=== PATIENT | male | born 1970 | race Asian ===

== ENCOUNTER 2021-10-25 08:43 | Day surgery (SDC) | payer BC, SELFPAY ==
[~2021-10-25] VITALS: Ht 170.2 cm; Wt 64.9 kg
[~2021-10-25 08:43] MED LIST: ACETAMINOPHEN I.V. 1000 MG 100 ML IV ONE
[2021-10-25] MEDS ORDERED: NS IRRIG SOLN 1000 ML IR ONE (10:23)
[2021-10-25] MEDS ORDERED: NS 1000 ML IV.SOLN IV ONE (10:23)
[2021-10-25] MEDS ORDERED: LIDOCAINE/EPI 1% 1:100000 20 ML VIAL INJ ONE (10:23)
[2021-10-25] MEDS ORDERED: LIDOCAINE MPF 2% 5mL VIAL INJ ONE (10:23)
[2021-10-25] MEDS ORDERED: METOPROLOL TARTRATE 5 MG/5 ML AMPUL IVP ONE (10:23)
[2021-10-25] MEDS ORDERED: PROPOFOL 200MG/ 20ML VIAL (DIPRIVAN) IV ONE (10:23)
[2021-10-25] MEDS ORDERED: SUGAMMADEX SODIUM 200 MG/2 ML VIAL IV ONE (10:23)
[2021-10-25] MEDS ORDERED: BACITRACIN 1 GM OINT TP ONE (10:23)
[2021-10-25] MEDS ORDERED: fentaNYL CITRATE 250 MCG/5 ML AMP IV ONE (10:23)
[2021-10-25] MEDS ORDERED: DESFLURANE 15 MIN GAS INH ONE (10:23)
[2021-10-25] MEDS ORDERED: ePHEDrine sulfate 50 MG/ML VIAL IVP ONE (10:23)
[2021-10-25] MEDS ORDERED: ROCURONIUM BROMIDE 10 MG/ML (ZEMURON) IV ONE (10:23)
[2021-10-25] MEDS ORDERED: ONDANSETRON HCL 4 MG/2 ML VIAL IVP ONE (10:23)
[2021-10-25] MEDS ORDERED: LR 1,000 ML IV.SOLN IV ONE (10:23)
[2021-10-25] MEDS ORDERED: DEXAMETHASONE SOD PHOSPHATE 4 MG/ML VIAL IVP ONE (10:23)
[2021-10-25] MEDS ORDERED: WATER FOR IRRIGATION,STERILE 1,000 ML IRRIG.SOLN IR ONE (10:23)
[2021-10-25] MEDS ORDERED: MIDAZOLAM HCL 2 MG/2 ML VIAL (VERSED) IVP PRN (11:00)
[2021-10-25] MEDS ORDERED: LR 1,000 ML IV SCH (11:00)
[2021-10-25] MEDS ORDERED: METOCLOPRAMIDE HCL 10 MG/2 ML VIAL IVP PRN (11:00)
[2021-10-25] MEDS ORDERED: LABETALOL 100 MG/ 20ML VIAL IVP PRN (11:00)
[2021-10-25] MEDS ORDERED: MEPERIDINE HCL/PF 25 MG/ML DISP.SYRIN IVP PRN (11:00)
[2021-10-25] MEDS ORDERED: HYDROmorphone 1 MG/ML INJ. CARTRIDGE IVP PRN ×2 (11:00)
[2021-10-25 15:41] VITALS: BP_SYST 146
== END 2021-10-25 15:25 | disposition home or self-care (01) ==
LOC: SDS 08:43 → SMU 08:44 → SDS 15:25
PROVIDERS: ATTEND Otolaryngology
DX: J34.2 Deviated nasal septum (principal); D38.5 Neoplasm of uncertain behavior of other respiratory organs; J30.1 Allergic rhinitis due to pollen; E78.5 Hyperlipidemia, unspecified; E11.49 Type 2 diabetes mellitus with other diabetic neurological complication; Z79.899 Other long term (current) drug therapy; Z20.822 Contact with and (suspected) exposure to COVID-19
CPT/HCPCS: 30140; 30520; 31257; 31295; 31296; 82962; 88305; 88311; J0131; J1100; J2001; J2405; J2704; J3010; J3465; J3490 ×2; J7030; J7120; U0003; 88304; 88341; 88342; 88361